=== PATIENT | female | born 1990 | race American Indian/Alaskan Native ===

== ENCOUNTER 2017-06-05 07:54 | Emergency (ER) | payer OTHER, MEDICAID ==
[2017-06-05 08:04] VITALS: BP 127/87
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
== END 2017-06-05 10:01 | disposition home or self-care (01) ==
LOC: ED 07:54
DX: R51 Headache (principal); I10 Essential (primary) hypertension; J45.909 Unspecified asthma, uncomplicated; F17.200 Nicotine dependence, unspecified, uncomplicated; V89.2XXA Person injured in unspecified motor-vehicle accident, traffic, initial encounter; Y93.89 Activity, other specified; Y99.9 Unspecified external cause status; Y92.410 Unspecified street and highway as the place of occurrence of the external cause
CPT/HCPCS: 99282

== ENCOUNTER 2018-01-14 08:59 | Emergency (ER) | payer OTHER, MEDICAID ==
[2018-01-14 09:25] VITALS: BP 113/70
[2018-01-14] MEDS ORDERED: MOTRIN PO ONE (11:14)
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
== END 2018-01-14 12:07 | disposition home or self-care (01) ==
LOC: ED 08:59
DX: S86.911A Strain of unspecified muscle(s) and tendon(s) at lower leg level, right leg, initial encounter (principal); S76.011A Strain of muscle, fascia and tendon of right hip, initial encounter; S39.012A Strain of muscle, fascia and tendon of lower back, initial encounter; I10 Essential (primary) hypertension; J45.909 Unspecified asthma, uncomplicated; F17.200 Nicotine dependence, unspecified, uncomplicated; V49.49XA Driver injured in collision with other motor vehicles in traffic accident, initial encounter; Y93.89 Activity, other specified; Y92.89 Other specified places as the place of occurrence of the external cause; Y99.8 Other external cause status
CPT/HCPCS: 72100

== ENCOUNTER 2018-03-31 08:05 | Emergency (ER) | payer MEDICAID, OTHER ==
[2018-03-31 08:39] VITALS: BP 116/76
[2018-03-31] MEDS ORDERED: SILVER NITRATE TP ONE (09:35)
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
[2018-03-31] MEDS ORDERED: THERMAZENE 50 GRAM TP ONE ×2 (09:48→11:00)
== END 2018-03-31 09:54 | disposition home or self-care (01) ==
LOC: ED 08:05
DX: T23.172A Burn of first degree of left wrist, initial encounter (principal); I10 Essential (primary) hypertension; J45.909 Unspecified asthma, uncomplicated; M32.9 Systemic lupus erythematosus, unspecified; Z90.89 Acquired absence of other organs; F17.200 Nicotine dependence, unspecified, uncomplicated; X08.8XXA Exposure to other specified smoke, fire and flames, initial encounter; Y93.89 Activity, other specified; Y92.89 Other specified places as the place of occurrence of the external cause; Y99.8 Other external cause status